=== PATIENT | male | born 2000 | race Caucasian/White ===

== ENCOUNTER 2023-02-01 02:32 | Emergency (ER) | payer SELFPAY ==
[2023-02-01] MEDS ORDERED: diphenhydrAMINE 50 MG Cap PO ONE (03:36)
[2023-02-01] MEDS ORDERED: Famotidine 20 MG Tab PO ONE (03:36)
[2023-02-01] MEDS ORDERED: Loratadine 10 MG Tab PO ONE (03:37)
[2023-02-01] MEDS ORDERED: Famotidine 20 MG Tab ONE ×2 (03:52→03:54)
== END 2023-02-01 04:20 | disposition home or self-care (01) ==
LOC: FB.ED 02:32
DX: L30.9 Dermatitis, unspecified (principal); Z79.899 Other long term (current) drug therapy; Z91.048 Other nonmedicinal substance allergy status
CPT/HCPCS: 99282; A9270